=== PATIENT | male | born 1960 | race African-American/Black ===

== ENCOUNTER 2018-09-29 10:15 | Outpatient (CLI) | payer OTHER ==
[2018-09-29 10:49] LABS: Hematocrit 42.6 % (35.5-45.6); Hemoglobin 14.2 gm/dl (11.8-15.2); Mean Corpuscular HGB Conc 33 % (32-34); Mean Corpuscular Volume 91 fl (84-94); Platelet Count 262 K/mm3 (140-440); Red Blood Count 4.67 M/mm3 (3.65-5.03); Red Cell Distribution Width 14.8 % (13.2-15.2)
[2018-09-29 11:14] LABS: Alanine Aminotransferase 8 units/L (7-56); Albumin 4.3 g/dL (3.9-5); BUN/Creatinine Ratio 11; Blood Urea Nitrogen 12 mg/dL (9-20); Calcium 9.4 mg/dL (8.4-10.2); Hemolysis Index 4
[2018-09-29 11:57] LABS: Erythrocyte Sedimentation Rate 2 mm/Hr (0-20)
== END 2018-09-29 10:16 | disposition home or self-care (01) ==
LOC: LAB 10:15
PROVIDERS: ATTEND Internal Medicine
DX: I10 Essential (primary) hypertension (principal); Z86.11 Personal history of tuberculosis
CPT/HCPCS: 36415; 80053; 85027; 85652